=== PATIENT | female | born 1970 | race Caucasian/White ===

== ENCOUNTER → 2016-04-21 | Day surgery (SDC) | payer BC ==
[2016-04-19 12:48] LABS: Basophils # (auto) 0 uL; Basophils % (auto) 0.3 % (0.0-2.0); Eosinophils # (auto) 0.1 uL; Hematocrit 42.1 % (36.0-46.0); Hemoglobin 13.7 g/dL (12.2-16.2); Lymphocytes # (auto) 3.2 uL; Lymphocytes % (auto) 41.7 % (10.0-50.0); Mean Corpuscular Hemoglobin 29.4 pg (28.0-32.0); Mean Corpuscular Hgb Conc. 32.5 g/dL (32.0-36.0); Mean Corpuscular Volume 90.4 fL (80.0-100.0); Mean Platelet Volume 7.4 fL (7.4-10.4); Monocytes # (auto) 0.7 uL; Monocytes % (auto) 8.8 % (0.0-12.0); Neutrophils # (auto) 3.7 uL; Neutrophils % (auto) 48.2 % (37.0-80.0); Platelet Count (auto) 347 10^3/uL (140-450); Red Cell Distribution Width 12.7 % (11.6-16.0); White Blood Cell 7.6 10^3/uL (4.4-10.8)
[2016-04-19 15:19] LABS: Partial Thromboplastin Time 26.1 sec (22.64-33.71); Prothrombin Time 10.3 sec (9.37-12.3)
[~2016-04-21] VITALS: Ht 160 cm; Wt 70.3 kg
[~2016-04-21] MED LIST: LIDOCAINE VISCOUS 2% 15ML UD ONE; PANT40TA2 PO; SODIUM CHLORIDE LOCK 10 ML ONE; diphenhdrAMINE HCL 50 MG/1 ML VL ONE
[2016-04-21] MEDS: MIDAZOLAM HCL 5 MG/ML-1ML VIAL ONE ×2 (10:40→10:44)
[2016-04-21] MEDS: fentaNYL CITRATE 100 MCG/2 ML VL ONE ×2 (10:40→10:44)
[2016-04-21 11:40] VITALS: BP 109/78
== END | disposition home or self-care (01) ==
LOC: GI 09:57
PROVIDERS: ATTEND Internal Medicine Gastroenterology
DX: K22.2 Esophageal obstruction (principal)
CPT/HCPCS: 36415; 43239; 43248; 84702; 85025; 85610; 85730; J1200; J2250; J3010